=== PATIENT | male | born 1965 | race Two or more races ===

== ENCOUNTER 2022-06-12 10:22 | Inpatient (IN) | payer MEDICARE, MEDICAID ==
[~2022-06-12] VITALS: Ht 152.4 cm; Wt 58.6 kg
[2022-06-12 12:46] LABS: Calcium 6.7 mg/dL (8.5-10.1)
[2022-06-12 12:51] LABS: Basophils # (auto) 0 10 ^3/uL (0-0.2); Eosinophils # (auto) 0 10 ^3/uL (0-0.8); Lymphocytes # (auto) 1.3 10 ^3/uL (0.4-5.4); Monocytes # (auto) 0.8 10 ^3/uL (0-1.3); White Blood Cell 9.8 10^3/uL (4.4-10.8)
[2022-06-12 12:52] LABS: BUN/Creatinine Ratio 15.1; Bilirubin, Total 0.3 mg/dL (0.2-1.0); Total Protein 3.7 g/dL (6.4-8.2)
[2022-06-12 12:53] LABS: Basophils % (auto) 0.5 % (0.0-2.0); Hematocrit 34.3 % (41.0-53.0); Hemoglobin 11.5 g/dL (13.5-17.5); Lymphocytes % (auto) 13.3 % (10.0-50.0); Mean Corpuscular Hemoglobin 30.4 pg (28.0-32.0); Mean Corpuscular Hgb Conc. 33.6 g/dL (32.0-36.0); Mean Corpuscular Volume 90.5 fL (80.0-100.0); Monocytes % (auto) 8.1 % (0.0-12.0); Neutrophils # (auto) 7.6 10 ^3/uL (1.6-8.6); Neutrophils % (auto) 78.1 % (37.0-80.0); Red Blood Cells 3.79 10^6/uL (4.5-5.90); Red Cell Distribution Width 15.6 % (11.8-14.3)
[2022-06-12] MEDS ORDERED: GLUCAGON HYDROCHLORIDE (RDNA) 1 MG VIAL IV ONE ×2 (13:00→16:00)
[2022-06-12] MEDS: NITROGLYCERIN 0.4 MG SL TAB SL ONE ×2 (13:00→13:27)
[2022-06-12 13:03] LABS: Potassium 2.5 mmol/L (3.5-5.1)
[2022-06-12] MEDS ORDERED: cefTRIAXone 1GM/50ML D5W 50 ML IV ONE (15:15)
[2022-06-12] MEDS: POTASSIUM CHL 20MEQ/100ML 100 ML IV SCH ×2 (16:35→19:57)
[2022-06-12] MEDS ORDERED: NITROGLYCERIN 0.4 MG SL TAB SL PRN (17:15)
[2022-06-12] MEDS ORDERED: MORPHINE SULFATE INJ 2 MG/ml SYRG IV PRN (17:15)
[2022-06-12] MEDS ORDERED: ONDANSETRON HCL 4 MG/2 ML VIAL IV PRN (17:15)
[2022-06-12] MEDS ORDERED: FAMOTIDINE INJECTION 40 MG in SODIUM CHL 0.9% 100 ML IV ONE (18:00)
[2022-06-12] MEDS ORDERED: FAMOTIDINE (10MG/ML) 2ML VL IV ONE (18:45)
[2022-06-12 18:47] LABS: Cholesterol 117 mg/dL (< 200); HDL Cholesterol 46 mg/dL (40-59); LDL Cholesterol 62 mg/dL (< 100); Triglycerides 131 mg/dL (< 150)
[2022-06-12 23:09] VITALS: BP 109/74
[2022-06-13 01:11] LABS: Anion Gap 9 (5-15); BUN/Creatinine Ratio 22.6; Blood Urea Nitrogen 12 mg/dL (7-18); Calcium 6.4 mg/dL (8.5-10.1); Carbon Dioxide 22 mmol/L (21-32); Chloride 108 mmol/L (98-107); GFR African American 206 mL/min; GFR Non-African American 170 mL/min; Glucose 68 mg/dL (74-106); Sodium 139 mmol/L (136-145)
[2022-06-13 01:13] LABS: Potassium 2.8 mmol/L (3.5-5.1)
[2022-06-13 05:00] VITALS: BP 91/58
[2022-06-13 07:51] LABS: Basophils # (auto) 0 10 ^3/uL (0-0.2); Eosinophils # (auto) 0 10 ^3/uL (0-0.8); Monocytes # (auto) 0.4 10 ^3/uL (0-1.3); White Blood Cell 5.9 10^3/uL (4.4-10.8)
[2022-06-13 07:53] LABS: Basophils % (auto) 0.7 % (0.0-2.0); Hematocrit 36.3 % (41.0-53.0); Lymphocytes % (auto) 17.8 % (10.0-50.0); Mean Corpuscular Hemoglobin 30.7 pg (28.0-32.0); Mean Corpuscular Hgb Conc. 33.1 g/dL (32.0-36.0); Mean Corpuscular Volume 92.8 fL (80.0-100.0); Monocytes % (auto) 7.3 % (0.0-12.0); Neutrophils # (auto) 4.4 10 ^3/uL (1.6-8.6); Neutrophils % (auto) 74.2 % (37.0-80.0); Nucleated Red Blood Cells % 0.1 %; Red Blood Cells 3.91 10^6/uL (4.5-5.90)
[2022-06-13 07:56] LABS: BUN/Creatinine Ratio 17.7
[2022-06-13 07:57] LABS: Bilirubin, Total 0.2 mg/dL (0.2-1.0); Total Protein 3.9 g/dL (6.4-8.2)
[2022-06-13 09:09] VITALS: BP 91/58
[2022-06-13] MEDS: ENOXAPARIN SOD 40 MG/0.4 ML SYRINGE SC SCH (10:00)
[2022-06-13] MEDS ORDERED: cefTRIAXone 1GM/50ML D5W 50 ML IV ONE (11:15)
[2022-06-13 12:35] LABS: INR 1.08 (0.9-1.15); Partial Thromboplastin Time 25.4 sec (24.6-33.4)
[2022-06-13 13:29] VITALS: BP 81/55
[2022-06-13] MEDS ORDERED: fentaNYL CITRATE 100 MCG/2 ML VL ONE (14:25)
[2022-06-13] MEDS ORDERED: MIDAZOLAM HCL 2MG/2ML 2ml VIAL (1mg/ml) ONE (14:25)
[2022-06-13] MEDS ORDERED: PROPOFOL 10 MG/ML 20 ML IV ONE (14:41)
[2022-06-13] MEDS ORDERED: ONDANSETRON HCL 4 MG/2 ML VIAL ONE (14:41)
[2022-06-13 16:56] VITALS: BP 86/60
[2022-06-13] MEDS: SUCRALFATE 1 GM/10 ML ORAL SUSP PO SCH ×2 (17:55→20:49)
[2022-06-13] MEDS ORDERED: GABA300C10 PO (20:41)
[2022-06-13] MEDS: PANTOPRAZOLE 40 MG/10 ML VIAL INJ IV SCH (20:48)
[2022-06-13 21:07] VITALS: BP 88/63
[2022-06-14 05:16] VITALS: BP 118/78
[2022-06-14] MEDS: SUCRALFATE 1 GM/10 ML ORAL SUSP PO SCH ×4 (05:58→21:03)
[2022-06-14 09:00] VITALS: BP 103/76
[2022-06-14 09:13] LABS: Hepatitis B Surface Antibody Negative (Negative)
[2022-06-14] MEDS: cefTRIAXone 1GM/50ML D5W 50 ML IV SCH (09:28)
[2022-06-14] MEDS: PANTOPRAZOLE 40 MG/10 ML VIAL INJ IV SCH ×2 (09:30→21:03)
[2022-06-14] MEDS: ENOXAPARIN SOD 40 MG/0.4 ML SYRINGE SC SCH (09:31)
[2022-06-14 09:47] LABS: Hepatitis A Total Antibody Negative (Negative)
[2022-06-14 11:50] LABS: Hepatitis C Antibody Negative (Negative)
[2022-06-14 13:00] VITALS: BP 106/78
[2022-06-14 17:00] VITALS: BP 95/74
[2022-06-14 22:00] VITALS: BP 100/68
[2022-06-15 05:00] VITALS: BP 104/71
[2022-06-15] MEDS: SUCRALFATE 1 GM/10 ML ORAL SUSP PO SCH ×2 (06:22→11:34)
[2022-06-15] MEDS: PANTOPRAZOLE 40 MG/10 ML VIAL INJ IV SCH (10:23)
[2022-06-15] MEDS: ENOXAPARIN SOD 40 MG/0.4 ML SYRINGE SC SCH (10:23)
[2022-06-15] MEDS: cefTRIAXone 1GM/50ML D5W 50 ML IV SCH (10:23)
[2022-06-15] MEDS ORDERED: PANT40T PO (12:32)
[2022-06-15] MEDS ORDERED: SUCR1TAB PO (12:32)
[2022-06-15] MEDS ORDERED: LEVO500T31 PO (12:32)
[2022-06-15 15:56] VITALS: BP 104/71
== END 2022-06-15 16:00 | disposition home or self-care (01) | DRG 393 ==
LOC: ER 10:22 → TELE 17:18 → TELE-EAST 23:21
PROVIDERS: ADMIT Registered Nurse; ATTEND Family Medicine
PROC: 0DB68ZX Excision of Stomach, Via Natural or Artificial Opening Endoscopic, Diagnostic (ICD-10-PCS; 2022-06-13)
PROC: 0DB58ZX Excision of Esophagus, Via Natural or Artificial Opening Endoscopic, Diagnostic (ICD-10-PCS; 2022-06-13)
PROC: 0DB98ZX Excision of Duodenum, Via Natural or Artificial Opening Endoscopic, Diagnostic (ICD-10-PCS; principal; 2022-06-13 14:23)
DX: T18.128A Food in esophagus causing other injury, initial encounter (principal); E43 Unspecified severe protein-calorie malnutrition; J18.9 Pneumonia, unspecified organism; E85.9 Amyloidosis, unspecified; I42.9 Cardiomyopathy, unspecified; J90 Pleural effusion, not elsewhere classified; R18.8 Other ascites; K22.10 Ulcer of esophagus without bleeding; E78.5 Hyperlipidemia, unspecified; E87.6 Hypokalemia; Z20.822 Contact with and (suspected) exposure to COVID-19; E83.01 Wilson's disease; E88.09 Other disorders of plasma-protein metabolism, not elsewhere classified; F20.9 Schizophrenia, unspecified; K21.9 Gastro-esophageal reflux disease without esophagitis; K44.9 Diaphragmatic hernia without obstruction or gangrene; K74.5 Biliary cirrhosis, unspecified; K75.9 Inflammatory liver disease, unspecified; X58.XXXA Exposure to other specified factors, initial encounter; Y93.89 Activity, other specified; Y92.89 Other specified places as the place of occurrence of the external cause; Y99.8 Other external cause status; Z68.25 Body mass index [BMI] 25.0-25.9, adult
CPT/HCPCS: 36415; 71250; 76705; 80048; 80053; 80061; 82728; 83735; 83880; 84484; 85025; 85610; 85730; 86038; 86704; 86706; 86708; 86803; 87340; 93306; 96365; 96375; 96376; C9113; G0378; J0696; J2250; J2405; J2704; J3480; J3490